=== PATIENT | female | born 1945 | race Two or more races ===

== ENCOUNTER 2021-11-25 09:21 | Outpatient (CLI) | payer OTHER | END 2021-11-25 23:59 | disposition home or self-care (01) | LOC: LAB 09:21 | PROVIDERS: ATTEND Specialist | DX: Z01.812 Encounter for preprocedural laboratory examination (principal); Z20.822 Contact with and (suspected) exposure to COVID-19 | CPT/HCPCS: C9803; U0003 ==

== ENCOUNTER 2021-12-01 05:03 | Inpatient (IN) | payer OTHER ==
[2021-12-01] MEDS ORDERED: ANESTHESIA TRAY IN PYXIS 1 EA TRAY MC ONE (05:54)
[2021-12-01] MEDS ORDERED: BUPIVACAINE 0.5 % PF 150 MG/30 ML VIAL ONE ×2 (05:54→06:45)
[2021-12-01] MEDS ORDERED: CEFAZOLIN 2 GM in IV D5W 100 ML IV SCH (06:00)
[2021-12-01] MEDS ORDERED: TRANEXAMIC ACID 3,000 MG in SODIUM CHLORIDE IRRIG SOLUTION 70 ML IR ONE (06:30)
[2021-12-01] MEDS ORDERED: HYDROMORPHONE INJ 2 MG/ML DISP.SYRIN ONE (06:45)
--- NOTE | 2021-12-01 08:15 | NUR ---
RN NOTE RECEIVED REPORT FROM DARYA GARCIA THAT PATIENT'S SURGERY WAS POSTPONED. PATIENT DISCHARGED HOME. LEFT UNIT AT 0810, ACCOMPANIED PATIENT TO THE LOBBY VIA W/C. PATIENT PICKED UP BY FRIEND BHAVANI VIA PRIVATE CAR. PATIENT IN STABLE CONDITION. SHE'LL RESCHEDULE SURGERY WITH DR. CASTILLO. CN AWARE OF DISCHARGE.
== END 2021-12-01 08:15 | disposition home or self-care (01) | DRG 554 ==
LOC: DS 05:03 → MED 05:05
PROVIDERS: ADMIT Specialist; ATTEND Specialist
DX: M17.11 Unilateral primary osteoarthritis, right knee (principal); Z53.8 Procedure and treatment not carried out for other reasons
CPT/HCPCS: 87081-TC; A4217; G0378; J0690; J1170; J3490; J7060